=== PATIENT | female | born 1980 | race Caucasian/White ===

== ENCOUNTER 2018-01-24 16:20 | Emergency (ER) | payer MEDICAID, OTHER ==
[2018-01-24 17:36] LABS: Absolute Lymphocytes (CBC) 2.6 K/uL (0.7-4.9); Absolute Monocytes 0.4 K/uL (0.1-1.3); Absolute Neutrophil 3.9 K/uL (1.8-8.0); Basophils % 0.5 % (0-1.3); Hematocrit 40.1 % (36.0-45.0); Lymphocytes % 36.6 % (15.3-44.8); MCH 26.5 pg (27.0-35.0); MCV 81.1 fL (80-100); MPV 8.1 fL (7.6-11.3); Monocytes % 5.7 % (3.3-12.3); RBC Red Blood Cell Count 4.94 M/uL (3.86-4.86)
[2018-01-24] MEDS ORDERED: LIDOCAINE VISCOUS 2% SOLN 15 ML UDC ONE (17:36)
[2018-01-24] MEDS ORDERED: cloNIDine HCl 0.1 MG TAB ONE (17:36)
[2018-01-24] MEDS ORDERED: MAGNE/ALUM HYDROXD 30 ML UCUP ONE (17:36)
--- NOTE | 2018-01-24 18:15 | RAD REPORT ---
EXAM DESCRIPTION: Jayleen Single View01/24/2018 5:48 pm CLINICAL HISTORY: Chest pain COMPARISON: none FINDINGS: The lungs appear clear of acute infiltrate. The heart is normal size. Scoliosis involves the spine. A calcified granuloma is suspected within the left lung base IMPRESSION: No acute abnormalities displayed
[2018-01-24 18:38] LABS: Potassium 3.6 mEq/L (3.6-5.0)
[2018-01-24 18:48] LABS: CKMB Creatine Kinase MB 0.7 ng/ml (0.3-4.0)
--- NOTE | 2018-01-24 18:55 | EDPHYS ---
Physician Documentation [facility] Name: Zofia Moody Age: 37 yrs Sex: Female : 1980 Arrival Date: 01/24/2018 Time: 16:25 Bed 17 Private MD: ED Physician Viraj Joyce HPI: 01/24 16:56 This 37 yrs old Female presents to ER via Ambulatory with complaints of Chest rn Pain, Shoulder Pain, High Blood Pressure. 16:56 The patient or guardian reports chest pain that is located primarily in the anterior rn chest wall, left. The pain radiates to the left arm. Associated signs and symptoms: Pertinent positives: lightheadedness, palpitations, shortness of breath. The chest pain is described as aching. Duration: The patient or guardian reports multiple episodes, that are intermittent. Modifying factors: The symptoms are alleviated by nothing. the symptoms are aggravated by nothing. Severity of pain: At its worst the pain was mild in the emergency department the pain is unchanged. The patient has not experienced similar symptoms in the past. Reports chest pain, left anterior/outer/upper, radiates at times to left arm, intermittent, lasts approx 1 min, worse with palpation, no fever/hemoptysis, no previous DVT/PE or risk factors for such. . 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 hb Historical: - Allergies: 16:40 Sulfa (Sulfonamide Antibiotics) (Anaphylaxis); hb - Home Meds: 16:40 propranolol 40 mg Oral tab 1 tab every 12 hours [Active]; levothyroxine 175 mcg tab 1 hb tab once daily [Active]; prazosin 2 mg Oral cap 1 cap 2 times per day [Active]; quetiapine 300 mg oral tab 1 tab once daily [Active]; Trintellix 10 mg oral tab 1 tab once daily [Active]; baclofen 10 mg Oral tab 1 tab 3 times per day [Active]; clonazepam 1 mg Oral tab 1 tab 3 times per day [Active]; Tylenol-Codeine #4 300-60 mg Oral tab [Active]; - PMHx: 16:40 Hypertension; Thryroid CA; Myocardial infarction; hb - PSHx: 16:41 Tubal ligation; Tonsillectomy; Thyroidectomy; ; hb - Immunization history:: Adult Immunizations up to date. - Social history:: Smoking status: Patient uses tobacco products, smokes one pack cigarettes per day. - Family history:: not pertinent. - Hospitalizations: : No recent hospitalization is reported. ROS: 16:56 Constitutional: Negative for fever, chills, and weight loss, Eyes: Negative for injury, rn pain, redness, and discharge, Neck: Negative for injury, pain, and swelling, Cardiovascular: Negative for edema Respiratory: Negative for cough, wheezing Abdomen/GI: Negative for abdominal pain, nausea, vomiting, diarrhea, and constipation, MS/Extremity: Negative for injury and deformity, Skin: Negative for injury, rash, and discoloration, Neuro: Negative for headache, weakness, numbness, tingling, and seizure. Exam: 16:56 Constitutional: This is a well developed, well nourished patient who is awake, alert, rn appears anxious Head/Face: Normocephalic, atraumatic. Eyes: Pupils equal round and reactive to light, extra-ocular motions intact. Lids and lashes normal. Conjunctiva and sclera are non-icteric and not injected. Cornea within normal limits. Periorbital areas with no swelling, redness, or edema. Cardiovascular: Regular rate and rhythm with a normal S1 and S2. No gallops, murmurs, or rubs. Normal PMI, no JVD. No pulse deficits. Respiratory: Lungs have equal breath sounds bilaterally, clear to auscultation and percussion. No rales, rhonchi or wheezes noted. No increased work of breathing, no retractions or nasal flaring. Abdomen/GI: Soft, non-tender, with normal bowel sounds. No distension or tympany. No guarding or rebound. No evidence of tenderness throughout. Skin: Warm, dry with normal turgor. Normal color with no rashes, no lesions, and no evidence of cellulitis. MS/ Extremity: Pulses equal, no cyanosis. Neurovascular intact. Full, normal range of motion. Equal circumference. Neuro: Awake and alert, GCS 15, oriented to person, place, time, and situation. Cranial nerves II-XII grossly intact. Motor strength 5/5 in all extremities. Sensory grossly intact. Cerebellar exam normal. Normal gait. 18:49 ECG was reviewed by the Attending Physician. rn Vital Signs: 16:35 BP 163 / 107; Pulse 91; Resp 16; Temp 98.2; Pulse Ox 100% on R/A; Pain 6/10; hb 17:30 BP 130 / 95; Pulse 66; Resp 16; Pulse Ox 100% ; rb1 18:12 BP 131 / 92; Pulse 68; Resp 18; Pulse Ox 100% on R/A; Pain 3/10; rb1 19:06 BP 129 / 87; Pulse 74; Resp 16; Pulse Ox 98% ; rb1 MDM: 16:44 Patient medically screened. rn 18:53 Differential diagnosis: acute pericarditis, anxiety, chest wall pain, costochondritis, rn gastritis, gastroesophageal reflux disease (GERD), pleurisy, pneumothorax. Data reviewed: vital signs, nurses notes, lab test result(s), EKG, radiologic studies, plain films, and as a result, I will discharge patient. Counseling: I had a detailed discussion with the patient and/or guardian regarding: the historical points, exam findings, and any diagnostic results supporting the discharge/admit diagnosis, lab results, radiology results, the need for outpatient follow up, to return to the emergency department if symptoms worsen or persist or if there are any questions or concerns that arise at home. Special discussion: Based on the patient's history, exam, and Dx evaluation, there is no indication for emergent intervention or inpatient Tx. It is understood by the patient/guardian that if the Sx's persist or worsen they need to return immediately for re-evaluation. I discussed with the patient/guardian in detail that at this point there is no indication for admission to the hospital. It is understood, however, that if the symptoms persist or worsen the patient needs to return immediately for re-evaluation. 01/24 16:55 Order name: Basic Metabolic Panel rn 01/24 16:55 Order name: CBC with Diff rn 01/24 16:55 Order name: Ckmb rn 01/24 16:55 Order name: CPK rn 01/24 16:55 Order name: Troponin (emerg Dept Use Only) rn 01/24 17:40 Order name: CBC with Automated Diff; Complete Time: 17:56 EDMS 01/24 16:55 Order name: XRAY Chest (1 view) rn 01/24 18:16 Order name: RAD; Complete Time: 18:38 EDMS 01/24 18:38 Order name: Basic Metabolic Panel; Complete Time: 18:53 EDMS 03/20 18:41 Order name: Creatine Phosphokinase; Complete Time: 18:53 EDAL 01/24 18:46 Order name: Troponin (Emerg Dept Use Only); Complete Time: 18:53 EDAL 01/24 18:49 Order name: CKMB Creatine Kinase MB; Complete Time: 18:53 [facility] 01/24 19:17 Order name: Urine Dipstick--Ancillary (enter results) em1 01/24 16:55 Order name: Urine Test (obtain specimen); Complete Time: 19:19 rn 01/24 16:55 Order name: EKG; Complete Time: 16:56 rn 01/24 16:55 Order name: Cardiac monitoring; Complete Time: 17:13 rn 01/24 16:55 Order name: EKG - Nurse/Tech; Complete Time: 17:13 rn 01/24 16:55 Order name: IV Saline Lock; Complete Time: 17:29 rn 01/24 16:55 Order name: Labs collected and sent; Complete Time: 17:29 rn 01/24 16:55 Order name: O2 Per Protocol; Complete Time: 17:13 rn 01/24 16:55 Order name: O2 Sat Monitoring; Complete Time: 17:14 rn 01/24 16:55 Order name: Urine Dipstick-Ancillary (obtain specimen); Complete Time: 19:19 rn EC:49 Rate is 69 beats/min. Rhythm is regular. QRS [place] is Normal. CO interval is normal. QRS rn interval is normal. QT interval is normal. No Q waves. T waves are Normal. No ST changes noted. Clinical impression: Normal ECG. Interpreted by me. Administered Medications: 17:15 Drug: cloNIDine 0.1 mg Route: PO; rb1 18:20 Follow up: Response: No adverse reaction; Blood pressure is lowered; 129/91 rb1 17:15 Drug: GI Cocktail without - (Maalox Suspension 30 ml, Lidocaine Liquid 2 % 15 rb1 ml) Route: PO; 18:00 Follow up: Response: No adverse reaction; Pain is decreased rb1 Disposition: 01/24/18 18:54 Discharged to Home. Impression: Chest pain, unspecified. - Condition is Stable. - Discharge Instructions: Nonspecific Chest Pain. - Medication Reconciliation Form, Thank You Letter, Antibiotic Education, Prescription Opioid Use form. - Follow up: Private Physician; When: As needed; Reason: Recheck today's complaints, Re-evaluation by your physician. - Problem is new. - Symptoms have improved. Signatures: Dispatcher [employer] EDViraj Orosco MD MD rn Barber, Rebecca RN RN Corrie Taylor RN RN
--- NOTE | 2018-01-24 18:55 | ER ---
Nurse's Notes [facility] Name: Zofia Moody Age: 37 yrs Sex: Female : 1980 Arrival Date: 01/24/2018 Time: 16:25 Bed 17 Private MD: Diagnosis: Chest pain, unspecified Presentation: 01/24 16:33 Presenting complaint: Patient states: Left upper chest pain that radiates to left hb shoulder and arm, heartburn, dry heaves, and lethargy x 2 weeks Left chest is tender upon palpation. Denies injuiry. Transition of care: patient was not received from another setting of care. Onset of symptoms is unknown. Care prior to arrival: None. 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 Historical: - Allergies: 16:40 Sulfa (Sulfonamide Antibiotics) (Anaphylaxis); hb - Home Meds: 16:40 propranolol 40 mg Oral tab 1 tab every 12 hours [Active]; levothyroxine 175 mcg tab 1 hb tab once daily [Active]; prazosin 2 mg Oral cap 1 cap 2 times per day [Active]; quetiapine 300 mg oral tab 1 tab once daily [Active]; Trintellix 10 mg oral tab 1 tab once daily [Active]; baclofen 10 mg Oral tab 1 tab 3 times per day [Active]; clonazepam 1 mg Oral tab 1 tab 3 times per day [Active]; Tylenol-Codeine #4 300-60 mg Oral tab [Active]; - PMHx: 16:40 Hypertension; Thryroid CA; Myocardial infarction; hb - PSHx: 16:41 Tubal ligation; Tonsillectomy; Thyroidectomy; ; hb - Immunization history:: Adult Immunizations up to date. - Social history:: Smoking status: Patient uses tobacco products, smokes one pack cigarettes per day. - Family history:: not pertinent. - Hospitalizations: : No recent hospitalization is reported. Screenin:45 Abuse screen: Denies threats or abuse. Nutritional screening: No deficits noted. rb1 Tuberculosis screening: No symptoms or risk factors identified. Fall Risk None identified. Assessment: 16:45 General: Appears in no apparent distress. comfortable, Behavior is calm, cooperative, rb1 Reports fatigue for x 2 weeks. Denies fever. Pain: Complains of pain in anterior aspect of left upper chest Pain currently is 6 out of 10 on a pain scale. Pain began x 2 weeks. Pain: Pain does not radiate. Neuro: Level of Consciousness is awake, alert, obeys commands, Oriented to person, place, time, situation. Cardiovascular: Capillary refill < 3 seconds is brisk in bilateral fingers. Respiratory: Airway is patent Respiratory effort is even, unlabored, Respiratory pattern is regular, symmetrical. GI: Reports nausea. : No signs and/or symptoms were reported regarding the genitourinary system. Derm: Skin is pink, warm \T\ dry. Musculoskeletal: Range of motion: intact in all extremities. 17:43 Reassessment: Patient appears in no apparent distress at this time. No changes from rb1 previously documented assessment. 18:21 Reassessment: Patient appears in no apparent distress at this time. Patient and/or rb1 family updated on plan of care and expected duration. Pain level reassessed. Patient is alert, oriented x 3, equal unlabored respirations, skin warm/dry/pink. Vital Signs: 16:35 BP 163 / 107; Pulse 91; Resp 16; Temp 98.2; Pulse Ox 100% on R/A; Pain 6/10; hb 17:30 BP 130 / 95; Pulse 66; Resp 16; Pulse Ox 100% ; rb1 18:12 BP 131 / 92; Pulse 68; Resp 18; Pulse Ox 100% on R/A; Pain 3/10; rb1 19:06 BP 129 / 87; Pulse 74; Resp 16; Pulse Ox 98% ; rb1 ED Course: 16:25 Patient arrived in ED. rg4 16:35 Triage completed. hb 16:40 Arm band placed on right wrist. hb 16:44 Viraj Joyce MD is Attending Physician. rn 16:45 Patient has correct armband on for positive identification. Bed in low position. Call rb1 light in reach. Side rails up X 1. monitoring manager on. Pulse ox on. NIBP on. 16:45 Patient maintains SpO2 saturation greater than 95% on room air. rb1 16:46 Janice Anglin, RN is Primary Nurse. rb1 17:08 EKG done, by cartography technician. reviewed by Viraj Joyce MD. rg3 17:32 Basic Metabolic Panel Sent. ag 17:32 CBC with Diff Sent. ag 17:32 Ckmb Sent. ag 17:32 CPK Sent. ag 17:32 Troponin (emerg Dept Use Only) Sent. 17:32 Initial lab(s) drawn, by me, sent to lab. Inserted saline lock: 20 gauge in right ag antecubital area, using aseptic technique. Blood collected. 17:47 X-ray completed. Portable x-ray completed in exam room. Patient tolerated procedure ml well. 19:06 No provider procedures requiring assistance completed. IV discontinued, intact, rb1 bleeding controlled, No redness/swelling at site. Pressure dressing applied. Administered Medications: 17:15 Drug: cloNIDine 0.1 mg Route: PO; rb1 18:20 Follow up: Response: No adverse reaction; Blood pressure is lowered; 129/91 rb1 17:15 Drug: GI Cocktail without - (Maalox Suspension 30 ml, Lidocaine Liquid 2 % 15 rb1 ml) Route: PO; 18:00 Follow up: Response: No adverse reaction; Pain is decreased rb1 Intake: Outcome: 18:54 Discharge ordered by MD. rn 19:06 Discharged to home ambulatory, with family. rb1 19:06 Condition: stable 19:06 Discharge instructions given to patient, Instructed on discharge instructions, follow up and referral plans. Demonstrated understanding of instructions, follow-up care, Prescriptions given X none 19:06 Patient left the ED. rb1 Signatures: Libby Florez Roman, MD MD rn Garza, Rose rg3 Jaylyn Hatfield Rebecca, RN RN rb1 Corrie Modi RN RN hb Garcia, Rubi rg4 Corrections: (The following items were deleted from the chart) 16:36 16:33 Presenting complaint: Patient states: Left upper chest pain that radiates to left hb shoulder and arm, heartburn, dry heaves, and lethargy x 2 weeks hb 16:40 16:35 BP 163 / 100; Pulse 91bpm; Resp 16bpm; Pulse Ox 100% RA; Temp 98.2F; Pain 6/10; hbhb 19:22 19:21 Patient left the ED. rb1 rb1
[2018-01-24 19:22] LABS: Urine Blood NEGATIVE (NEG); Urine Glucose NEGATIVE (NEG); Urine Protein NEGATIVE (NEG); Urine Specific Gravity 1.015 (1.005-1.030); Urine pH 5.5 (5.0-7.0)
--- NOTE | 2018-01-25 05:55 | EKG ---
Test Date: 2018-01-24 Test Time: 17:02:10 Gas Regulator Repairer: GUY MEASUREMENT RESULTS: Intervals: Rate: 69 WI: 172 QRSD: 88 QT: 384 QTc: 411 [place]: P: 6 WI: 172 QRS: 4 T: 7 INTERPRETIVE STATEMENTS: Normal sinus rhythm Normal ECG No previous ECG available for comparison Electronically Signed On 01-25-18 05:55:14 CDT by Edgar Fagan
== END 2018-01-24 19:21 | disposition home or self-care (01) ==
LOC: ER 16:20
DX: R07.9 Chest pain, unspecified (principal); I10 Essential (primary) hypertension; I25.2 Old myocardial infarction; F17.210 Nicotine dependence, cigarettes, uncomplicated; Z85.850 Personal history of malignant neoplasm of thyroid; Z88.2 Allergy status to sulfonamides
CPT/HCPCS: 36415; 71045; 80048; 81003; 82550; 82553; 84484; 85025; 93005; 99285

== ENCOUNTER 2018-12-13 14:37 | Emergency (ER) | payer MEDICAID ==
--- OUTSIDE RECORDS SUMMARY | 2018-12-13 14:45 | XMS REPORT ---
:1980 Author Organization [facility] Address [address] [place] [address] [place] [id number] Care Team Providers Name Role Phone Unavailable Unavailable Unavailable Problems This patient has no known problems. Allergies, Adverse Reactions, Alerts This patient has no known allergies or adverse reactions. Medications This patient has no known medications.
--- NOTE | 2018-12-13 15:40 | ER ---
Nurse's Notes [facility] Name: Zofia Moody Age: 38 yrs Sex: Female : 1980 Arrival Date: 12/13/2018 Time: 14:41 Bed 19 Private MD: None, None Diagnosis: Periapical abscess without sinus Presentation: 12/13 15:20 Presenting complaint: Patient states: started with a toothache few days ago and then i hj noticed that the R side of my face is swollen and painful; just took Tylenol;. Transition of care: patient was not received from another setting of care. Onset of symptoms was December 13, 2018. Risk Assessment: Do you want to hurt yourself or someone else? Patient reports no desire to harm self or others. Initial Sepsis Screen: Does the patient meet any 2 criteria? No. Patient's initial sepsis screen is negative. Does the patient have a suspected source of infection? Yes:. Care prior to arrival: None. 15:20 Method Of Arrival: Ambulatory 15:20 Acuity: VANI 4 hj Triage Assessment: 15:23 General: Appears in no apparent distress. uncomfortable, Behavior is calm, cooperative, hj appropriate for age. Pain: Complains of pain in right cheek, right ear, right taoism and right jaw. 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 - Social history:: Smoking status: Patient uses tobacco products, Patient/guardian denies using alcohol. - Ebola Screening: : Patient negative for fever greater than or equal to 101.5 degrees Fahrenheit, and additional compatible Ebola Virus Disease symptoms Patient denies exposure to infectious person Patient denies travel to an Ebola-affected area in the days before illness onset. Screenin:23 Abuse screen: Denies threats or abuse. Denies injuries from another. Nutritional hj screening: No deficits noted. Tuberculosis screening: No symptoms or risk factors identified. Fall Risk None identified. Vital Signs: 15:24 BP 129 / 82; Pulse 93; Resp 18; Temp 98.1(TE); Pulse Ox 100% on R/A; Weight 99.79 kg; hj Height 5 ft. 11 in. (180.34 cm); Pain 10/10; 15:24 Body Mass Index 30.68 (99.79 kg, 180.34 cm) hj ED Course: 14:41 Patient arrived in ED. mr 14:41 None, None is Private Physician. mr 15:12 Gilberto Dickey, HONG is Primary Nurse. hj 15:14 Kevin Alexander NP is PHCP. pm1 15:14 Viraj Joyce MD is Attending Physician. pm1 15:21 Triage completed. hj 15:24 Arm band placed on right wrist. hj 15:25 Patient has correct armband on for positive identification. Bed in low position. Call hj light in reach. Side rails up X 1. Adult w/ patient. 16:17 No provider procedures requiring assistance completed. Patient did not have IV access hj during this emergency room visit. Administered Medications: 15:38 Drug: [place] 10 mg-325 mg 1 tabs Route: PO; hj 15:47 Follow up: Response: No adverse reaction; Pain is decreased hj 16:16 Drug: Clindamycin 600 mg Route: IM; Site: right deltoid; hj 16:16 Follow up: Response: No adverse reaction hj Outcome: 15:40 Discharge ordered by . pm1 16:17 Discharged to home ambulatory, with family. hj 16:17 Condition: stable 16:17 Discharge instructions given to patient, family, Instructed on discharge instructions, follow up and referral plans. medication usage, Demonstrated understanding of instructions, follow-up care, medications, Prescriptions given X 3. 16:18 Patient left the ED. Signatures: Kourtney Campos mr Gilberto Dickey, RN RN hj Kevin Alexander NP PLANT MANAGER pm1
--- NOTE | 2018-12-13 15:41 | EDPHYS ---
Physician Documentation [facility] Name: Zofia Moody Age: 38 yrs Sex: Female : 1980 Arrival Date: 12/13/2018 Time: 14:41 Bed 19 Private MD: None, None ED Physician Viraj Joyce HPI: 12/13 16:00 This 38 yrs old Female presents to ER via Ambulatory with complaints of pm1 Facial Swelling. 16:00 The patient presents with pain, swelling. The problem is located in the upper right pm1 first molar. Onset: The symptoms/episode began/occurred today. Duration: The symptoms are continuous. Modifying factors: The symptoms are alleviated by nothing, the symptoms are aggravated by chewing. Associated signs and symptoms: Pertinent positives: swelling, facial, Pertinent negatives: chills, fever, inability to eat. The patient has experienced similar episodes in the past, chronically, Patient has been told that she needs to have 5 teeth extracted for multiple months. Patient was unable to get teeth removed. The tooth that is currently giving her problems is her right upper first molar. The patient has not recently seen a physician. 16:00 right sided facial swelling started this AM. 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 - Social history:: Smoking status: Patient uses tobacco products, Patient/guardian denies using alcohol. - Ebola Screening: : Patient negative for fever greater than or equal to 101.5 degrees Fahrenheit, and additional compatible Ebola Virus Disease symptoms Patient denies exposure to infectious person Patient denies travel to an Ebola-affected area in the 21 days before illness onset. ROS: 16:00 Constitutional: Negative for fever, chills, and weight loss, Eyes: Negative for injury, pm1 pain, redness, and discharge. 16:00 Neck: Negative for injury, pain, and swelling, Cardiovascular: Negative for chest pain, palpitations, and edema, Respiratory: Negative for shortness of breath, cough, wheezing, and pleuritic chest pain, Abdomen/GI: Negative for abdominal pain, nausea, vomiting, diarrhea, and constipation, Back: Negative for injury and pain, : Negative for injury, bleeding, discharge, and swelling, MS/Extremity: Negative for injury and deformity, Skin: Negative for injury, rash, and discoloration, Neuro: Negative for headache, weakness, numbness, tingling, and seizure. 16:00 ENT: Positive for dental pain, Negative for sore throat, difficulty swallowing, difficulty handling secretions, hoarseness. Exam: 16:00 Constitutional: This is a well developed, well nourished patient who is awake, alert, pm1 and in no acute distress. Head/Face: Normocephalic, atraumatic. Eyes: Pupils equal round and reactive to light, extra-ocular motions intact. Lids and lashes normal. Conjunctiva and sclera are non-icteric and not injected. Cornea within normal limits. Periorbital areas with no swelling, redness, or edema. 16:00 Neck: Trachea midline, no thyromegaly or masses palpated, and no cervical lymphadenopathy. Supple, full range of motion without nuchal rigidity, or vertebral point tenderness. No Meningismus. Chest/axilla: Normal chest wall appearance and motion. Nontender with no deformity. No lesions are appreciated. Cardiovascular: Regular rate and rhythm with a normal S1 and S2. No gallops, murmurs, or rubs. Normal PMI, no JVD. No pulse deficits. Respiratory: Lungs have equal breath sounds bilaterally, clear to auscultation and percussion. No rales, rhonchi or wheezes noted. No increased work of breathing, no retractions or nasal flaring. Back: No spinal tenderness. No costovertebral tenderness. Full range of motion. Skin: Warm, dry with normal turgor. Normal color with no rashes, no lesions, and no evidence of cellulitis. MS/ Extremity: Pulses equal, no cyanosis. Neurovascular intact. Full, normal range of motion. 16:00 ENT: External ear(s): are unremarkable, Ear canal(s): are normal, TM's: are normal, Nose: is normal, Mouth: Lips: normal, Oral mucosa: normal, pink and intact, moist, Gums: normal with healthy appearance, Tongue: is normal, drooling, is not appreciated, No trisumus, Dental exam: dental caries, diffusely, pain, specifically in the upper right first molar (#3). 16:00 Neuro: Orientation: is normal, Motor: is normal, moves all fours, Gait: is steady, at a normal pace, without difficulty. Vital Signs: 15:24 BP 129 / 82; Pulse 93; Resp 18; Temp 98.1(TE); Pulse Ox 100% on R/A; Weight 99.79 kg; hj Height 5 ft. 11 in. (180.34 cm); Pain 10/10; 15:24 Body Mass Index 30.68 (99.79 kg, 180.34 cm) hj MDM: 15:28 Patient medically screened. pm1 15:37 Data reviewed: vital signs. Data interpreted: Pulse oximetry: on room air is 100 %. pm1 Interpretation: normal. Counseling: I had a detailed discussion with the patient and/or guardian regarding: the historical points, exam findings, and any diagnostic results supporting the discharge/admit diagnosis. Administered Medications: 15:38 Drug: [place] 10 mg-325 mg 1 tabs Route: PO; hj 15:47 Follow up: Response: No adverse reaction; Pain is decreased 16:16 Drug: Clindamycin 600 mg Route: IM; Site: right deltoid; 16:16 Follow up: Response: No adverse reaction Disposition: 16:40 Co-signature as Attending Physician, Viraj Joyce MD. rn Disposition: 12/13/18 15:40 Discharged to Home. Impression: Periapical abscess without sinus. - Condition is Stable. - Discharge Instructions: Dental Abscess. - Prescriptions for Clindamycin HCl 300 mg Oral Capsule - take 1 capsule by ORAL route every 6 hours for 10 days; 40 capsule. Tylenol- Codeine #3 300-30 mg Oral Tablet - take 2 tablets by ORAL route every 6 hours As needed; 20 tablet. Zofran 4 mg Oral Tablet - take 1 tablet by ORAL route every 12 hours As needed; 20 tablet. - Medication Reconciliation Form, Thank You Letter, Antibiotic Education, Prescription Opioid Use form. - Follow up: Emergency Department; When: As needed; Reason: Worsening of condition. Follow up: Private Physician; When: 2 - 3 days; Reason: Recheck today's complaints, Continuance of care, Re-evaluation by your physician. - Problem is new. - Symptoms have improved. Signatures: Viraj Joyce MD MD rn Joaquin, Henry, RN RN hj Marinas, Patrick, NP ANIMAL EVISCERATOR pm1 Corrections: (The following items were deleted from the chart) 16:18 15:40 12/13/2018 15:40 Discharged to Home. Impression: Periapical abscess without hj sinus. Condition is Stable. Forms are Medication Reconciliation Form, Thank You Letter, Antibiotic Education, Prescription Opioid Use. Follow up: Emergency Department; When: As needed; Reason: Worsening of condition. Follow up: Private Physician; When: 2 - 3 days; Reason: Recheck today's complaints, Continuance of care, Re-evaluation by your physician. Problem is new. Symptoms have improved. pm1
[2018-12-13] MEDS ORDERED: HYDROCODONE/APAP 10/325 TAB ONE (15:54)
[2018-12-13] MEDS ORDERED: CLINDAMYCIN IV 150 MG/ML (6 mL) VIAL IM ONE (16:00)
== END 2018-12-13 16:18 | disposition home or self-care (01) ==
LOC: ER 14:37
DX: K04.7 Periapical abscess without sinus (principal); I10 Essential (primary) hypertension; I25.2 Old myocardial infarction; Z72.0 Tobacco use; Z88.2 Allergy status to sulfonamides
CPT/HCPCS: 96372; 99283

== ENCOUNTER 2018-12-22 16:10 | Emergency (ER) | payer MEDICAID ==
--- OUTSIDE RECORDS SUMMARY | 2018-12-22 16:12 | XMS REPORT ---
:1980 [facility] [address] [place] [address] [place] [id number] Care Team Providers Name Role Phone Unavailable Unavailable Unavailable Problems This patient has no known problems. Allergies, Adverse Reactions, Alerts This patient has no known allergies or adverse reactions. Medications This patient has no known medications.
--- NOTE | 2018-12-22 18:09 | ER ---
Nurse's Notes [facility] Name: Zofia Moody Age: 38 yrs Sex: Female : 1980 Arrival Date: 12/22/2018 Time: 16:11 Bed 14 Private MD: Diagnosis: Otitis externa;Dental caries Presentation: 12/22 16:19 Presenting complaint: Patient states: left ear pain/yellow drainage started 3-4 days sv ago, was seen here recently for facial swelling and sent home with abx. Transition of care: patient was not received from another setting of care. Onset of symptoms was December 19, 2018. Care prior to arrival: None. 16:19 Method Of Arrival: Ambulatory sv 16:19 Acuity: VANI 4 sv 17:30 Risk Assessment: Do you want to hurt yourself or someone else? Patient reports no hj desire to harm self or others. Initial Sepsis Screen: Does the patient meet any 2 criteria? Yes Does the patient have a suspected source of infection? Yes:. Triage Assessment: 16:24 General: Appears in no apparent distress. uncomfortable, Behavior is calm, cooperative, sv appropriate for age. Pain: Complains of pain in left ear Pain currently is 10 out of 10 on a pain scale. EENT: Reports pain in left ear yellow ear drainage. Neuro: Level of Consciousness is awake, alert, obeys commands, Oriented to person, place, time, situation, Gait is steady. Respiratory: Respiratory effort is even, unlabored, Respiratory pattern is regular, symmetrical. 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 - Social history:: Smoking status: Patient/guardian denies using tobacco, Patient/guardian denies using alcohol. - Ebola Screening: : Patient negative for fever greater than or equal to 101.5 degrees Fahrenheit, and additional compatible Ebola Virus Disease symptoms Patient denies exposure to infectious person Patient denies travel to an Ebola-affected area in the 21 days before illness onset. - Family history:: not pertinent. Screenin:30 Abuse screen: Denies threats or abuse. Denies injuries from another. Nutritional hj screening: No deficits noted. Tuberculosis screening: No symptoms or risk factors identified. Fall Risk None identified. Vital Signs: 16:23 BP 124 / 91; Pulse 79; Resp 20; Temp 98; Pulse Ox 100% ; Weight 90.72 kg; Height 5 ft. sv 11 in. (180.34 cm); Pain 10/10; 16:23 Body Mass Index 27.89 (90.72 kg, 180.34 cm) sv ED Course: 16:11 Patient arrived in ED. mr 16:23 Triage completed. sv 16:24 Arm band placed on. sv 17:30 Gilberto Dickey, HONG is Primary Nurse. hj 17:31 Patient has correct armband on for positive identification. Bed in low position. Call hj light in reach. Side rails up X 1. Adult w/ patient. 17:36 Declan Kong MD is Attending Physician. joseph 18:09 Cynthia Dyer MD is Referral Physician. [facility] 18:16 No provider procedures requiring assistance completed. Patient did not have IV access hj during this emergency room visit. Administered Medications: 18:05 Drug: [place] 10 mg-325 mg 1 tabs Route: PO; hj 18:05 Follow up: Response: No adverse reaction; Pain is decreased hj Outcome: 18:07 Discharge ordered by . [facility] 18:16 Discharged to home ambulatory, with family. hj 18:16 Condition: stable 18:16 Discharge instructions given to patient, family, Instructed on discharge instructions, follow up and referral plans. medication usage, Demonstrated understanding of instructions, follow-up care, medications, Prescriptions given X 2. 18:17 Patient left the ED. hj Signatures: Cynthia Marie RN RN Declan Kong MD MD cha Rivera, Mary mr Gilberto Dickey RN RN hj Corrections: (The following items were deleted from the chart) 16:25 16:23 Pulse 79bpm; Resp 20bpm; Pulse Ox 100%; Temp 98F; 90.72 kg; Height 5 ft. 11 in.; sv BMI: 27.8; Pain 10/10; sv
--- NOTE | 2018-12-22 18:09 | EDPHYS ---
Physician Documentation [facility] Name: Zofia Moody Age: 38 yrs Sex: Female : 1980 Arrival Date: 12/22/2018 Time: 16:11 Bed 14 Private MD: ED Physician Declan Kong HPI: 12/22 18:02 This 38 yrs old Female presents to ER via Ambulatory with complaints of Ear joseph Pain, Drainage From Ear. 18:02 The patient presents with drainage, a fullness, pain, swelling, tenderness. The joseph complaints affect the left ear. Onset: The symptoms/episode began/occurred 3 day(s) ago. Modifying factors: The symptoms are alleviated by covering ear, the symptoms are aggravated by pulling on ears, touching. Associated signs and symptoms: The patient has no apparent associated signs or symptoms. Severity of symptoms: At their worst the symptoms were moderate in the emergency department the symptoms are unchanged. The patient has not experienced similar symptoms in the past. 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 - Social history:: Smoking status: Patient/guardian denies using tobacco, Patient/guardian denies using alcohol. - Ebola Screening: : Patient negative for fever greater than or equal to 101.5 degrees Fahrenheit, and additional compatible Ebola Virus Disease symptoms Patient denies exposure to infectious person Patient denies travel to an Ebola-affected area in the 21 days before illness onset. - Family history:: not pertinent. ROS: 18:02 Constitutional: Negative for fever, chills, and weight loss, Eyes: Negative for injury, joseph pain, redness, and discharge, Neck: Negative for injury, pain, and swelling, Cardiovascular: Negative for chest pain, palpitations, and edema, Respiratory: Negative for shortness of breath, cough, wheezing, and pleuritic chest pain, Abdomen/GI: Negative for abdominal pain, nausea, vomiting, diarrhea, and constipation, Back: Negative for injury and pain, : Negative for injury, bleeding, discharge, and swelling, MS/Extremity: Negative for injury and deformity, Skin: Negative for injury, rash, and discoloration, Neuro: Negative for headache, weakness, numbness, tingling, and seizure, Psych: Negative for depression, anxiety, suicide ideation, homicidal ideation, and hallucinations, Allergy/Immunology: Negative for hives, rash, and allergies, Endocrine: Negative for neck swelling, polydipsia, polyuria, polyphagia, and marked weight changes, Hematologic/Lymphatic: Negative for swollen nodes, abnormal bleeding, and unusual bruising. 18:02 ENT: Positive for dental pain, ear pain. Exam: 18:02 Constitutional: This is a well developed, well nourished patient who is awake, alert, joseph and in no acute distress. Head/Face: Normocephalic, atraumatic. Eyes: Pupils equal round and reactive to light, extra-ocular motions intact. Lids and lashes normal. Conjunctiva and sclera are non-icteric and not injected. Cornea within normal limits. Periorbital areas with no swelling, redness, or edema. Neck: Trachea midline, no thyromegaly or masses palpated, and no cervical lymphadenopathy. Supple, full range of motion without nuchal rigidity, or vertebral point tenderness. No Meningismus. Chest/axilla: Normal chest wall appearance and motion. Nontender with no deformity. No lesions are appreciated. Cardiovascular: Regular rate and rhythm with a normal S1 and S2. No gallops, murmurs, or rubs. Normal PMI, no JVD. No pulse deficits. Respiratory: Lungs have equal breath sounds bilaterally, clear to auscultation and percussion. No rales, rhonchi or wheezes noted. No increased work of breathing, no retractions or nasal flaring. Abdomen/GI: Soft, non-tender, with normal bowel sounds. No distension or tympany. No guarding or rebound. No evidence of tenderness throughout. Back: No spinal tenderness. No costovertebral tenderness. Full range of motion. Skin: Warm, dry with normal turgor. Normal color with no rashes, no lesions, and no evidence of cellulitis. MS/ Extremity: Pulses equal, no cyanosis. Neurovascular intact. Full, normal range of motion. Neuro: Awake and alert, GCS 15, oriented to person, place, time, and situation. Cranial nerves II-XII grossly intact. Motor strength 5/5 in all extremities. Sensory grossly intact. Cerebellar exam normal. Normal gait. Psych: Awake, alert, with orientation to person, place and time. Behavior, mood, and affect are within normal limits. 18:02 ENT: Ear canal(s): erythema, swelling, that is minimal, TM's: erythema, Posterior pharynx: Airway: normal, no evidence of obstruction, Tonsils: are normal in appearance, Uvula: normal, midline, swelling, is not appreciated, erythema, is not appreciated. Vital Signs: 16:23 BP 124 / 91; Pulse 79; Resp 20; Temp 98; Pulse Ox 100% ; Weight 90.72 kg; Height 5 ft. sv 11 in. (180.34 cm); Pain 10/10; 16:23 Body Mass Index 27.89 (90.72 kg, 180.34 cm) sv MDM: 17:36 Patient medically screened. joseph Administered Medications: 18:05 Drug: [place] 10 mg-325 mg 1 tabs Route: PO; 18:05 Follow up: Response: No adverse reaction; Pain is decreased Disposition: 12/22/18 18:07 Discharged to Home. Impression: Otitis externa, Dental caries. - Condition is Stable. - Discharge Instructions: Dental Pain, Dental Pain, [id number]. - Prescriptions for Cipro HC 0.2- 1 % Otic Drops - instill 3 drop by OTIC route every 12 hours for 7 days; 10 milliliter. Tylenol- Codeine #3 300-30 mg Oral Tablet - take 2 tablet by ORAL route every 6 hours As needed; 30 tablet. - Medication Reconciliation Form, Thank You Letter, Antibiotic Education, Prescription Opioid Use form. - Follow up: Private Physician; When: 2 - 3 days; Reason: Recheck today's complaints, Continuance of care, Re-evaluation by your physician. Follow up: Cynthia Dyer MD; When: 2 - 3 days; Reason: Recheck today's complaints, Re-evaluation by your physician. - Problem is new. - Symptoms have improved. Signatures: Cynthia Marie, RN RN Declan Gaston MD MD cha Joaquin, Henry, RN RN hj Corrections: (The following items were deleted from the chart) 18:09 18:07 12/22/2018 18:07 Discharged to Home. Impression: Otitis externa; Dental caries. joseph Condition is Stable. Forms are Medication Reconciliation Form, Thank You Letter, Antibiotic Education, Prescription Opioid Use. Follow up: Private Physician; When: 2 - 3 days; Reason: Recheck today's complaints, Continuance of care, Re-evaluation by your physician. Problem is new. Symptoms have improved. [facility] 18:17 18:09 12/22/2018 18:07 Discharged to Home. Impression: Otitis externa; Dental caries. Condition is Stable. Discharge Instructions: Dental Pain, Dental Pain, [id number]. Prescriptions for Cipro HC 0.2-1 % Otic Drops - instill 3 drop by OTIC route every 12 hours for 7 days; 10 milliliter, Tylenol-Codeine #3 300-30 mg Oral Tablet - take 2 tablet by ORAL route every 6 hours As needed; 30 tablet. and Forms are Medication Reconciliation Form, Thank You Letter, Antibiotic Education, Prescription Opioid Use. Follow up: Private Physician; When: 2 - 3 days; Reason: Recheck today's complaints, Continuance of care, Re-evaluation by your physician. Follow up: Cynthia Dyer; When: 2 - 3 days; Reason: Recheck today's complaints, Re-evaluation by your physician. Problem is new. Symptoms have improved. joseph
[2018-12-22] MEDS ORDERED: HYDROCODONE/APAP 10/325 TAB ONE (18:11)
== END 2018-12-22 18:17 | disposition home or self-care (01) ==
LOC: ER 16:10
DX: H60.92 Unspecified otitis externa, left ear (principal); K02.9 Dental caries, unspecified; I10 Essential (primary) hypertension; I25.2 Old myocardial infarction; Z88.2 Allergy status to sulfonamides; Z85.850 Personal history of malignant neoplasm of thyroid
CPT/HCPCS: 99283